=== PATIENT | male | born 1935 | race Caucasian/White ===

== ENCOUNTER 2018-07-22 09:36 | Day surgery (SDC) | payer OTHER ==
[~2018-07-22] VITALS: Ht 177.8 cm; Wt 110.9 kg
[~2018-07-22 09:36] MED LIST: ALLO100 PO; ALLO300 PO; AMOCLA875 PO; BP MED; CHOL10002 PO; CLOB.05TO TOP; GLUC500 PO; Glucosamine H1500 MG PO; HYDCHL12.5 PO; HYDCHL25 PO; LISI20 PO; LIVALO2 MG PO; Mobic15 MG PO; OXYACE7.5T PO; VITAMIN D-32000 UNIT PO; ZESTRIL40 MG PO
--- NOTE | 2018-07-22 11:09 | NUR ---
07/22/18 1108 Sabrina Franklin HOOKING UP ALTERNATIVE MONITER DUE TO EKG LEAD READING FAIL PRIOR TO SEDATION START
== END 2018-07-22 12:08 | disposition home or self-care (01) ==
LOC: ORSCSDS 09:36
PROVIDERS: Surgery
PROC: 0DJD8ZZ Inspection of Lower Intestinal Tract, Via Natural or Artificial Opening Endoscopic (ICD-10-PCS; principal; 2018-07-22 11:00)
DX: Z12.11 Encounter for screening for malignant neoplasm of colon (principal); Z86.010 Personal history of colon polyps; E78.00 Pure hypercholesterolemia, unspecified; I10 Essential (primary) hypertension; E78.5 Hyperlipidemia, unspecified; K21.9 Gastro-esophageal reflux disease without esophagitis; Z87.891 Personal history of nicotine dependence; Z79.899 Other long term (current) drug therapy
CPT/HCPCS: J2405; J7120

== ENCOUNTER → 2019-03-29 | Outpatient (CLI) | payer OTHER | END | disposition home or self-care (01) | LOC: LAB SHORT 10:28 → PLD 10:28 | DX: D48.5 Neoplasm of uncertain behavior of skin (principal) | CPT/HCPCS: 88305 ==

== ENCOUNTER 2019-04-07 15:56 | Emergency (ER) | payer OTHER ==
[~2019-04-07] VITALS: Ht 188 cm; Wt 113.4 kg
[2019-04-07 16:28] LABS: PCO2 Arterial 69.7 mmHg (35-45); PO2 Arterial 78.8 mmHg (80-100); pH Blood Arterial 6.91 (7.35-7.45)
[2019-04-07 16:43] LABS: BASOPHILS ABSOLUTE AUTO 0.04 K/mm3 (0.00-0.23); BASOPHILS PERCENT AUTO 1 % (0-2); EOSINOPHILS ABSOLUTE AUTO 0.09 K/mm3 (0.00-0.68); EOSINOPHILS PERCENT AUTO 1 % (0-6); Hematocrit 41.9 % (37.0-53.0); Hemoglobin 12.5 g/dL (13.5-17.5); IMMATURE GRAN ABSOLUTE AUTO 0.15 K/mm3 (0.00-0.10); IMMATURE GRAN PERCENT AUTO 2 % (0-1); LYMPHOCYTES PERCENT AUTO 42 % (21-46); MONOCYTES ABSOLUTE AUTO 0.37 K/mm3 (0.16-1.47); MONOCYTES PERCENT AUTO 5 % (4-13); Mean Corpuscular HGB 32.5 pg (26.0-34.0); Mean Corpuscular HGB Conc 29.8 g/dL (31.5-36.5); Mean Corpuscular Volume 109 fL (80-100); Mean Platelet Volume 11.1 fL (9.1-12.4); NEUTROPHILS ABSOLUTE AUTO 4.13 K/mm3 (1.96-9.15); NEUTROPHILS PERCENT AUTO 50 % (41-73); NRBC ABSOLUTE 0.02 K/mm3 (0.00-0.02); NRBC Auto 0.2 /100 WBC (0.0-0.2); Platelet Count 128 K/mm3 (150-400); RDW Coefficient Variation 13.3 % (11.7-14.2); RDW Standard Deviation 53.2 fL (35.1-46.3); Red Blood Cell Count 3.85 M/mm3 (4.30-5.90); White Blood Cell Count 8.28 K/mm3 (4.00-11.30)
--- NOTE | 2019-04-07 16:49 | NUR ---
Asked by ED staff to come to bedside of this dying pt. appeared frail and fragile. Son and grandchildren present. Prayer provided at TOD. Family appropriately tearful. selected [facility] for arrangements. Family left with pt's wallet and belt.
[2019-04-07 16:58] LABS: Albumin, Blood 3.2 g/dL (3.4-5.0); Albumin/Globulin Ratio 0.9 (0.8-1.8); Bilirubin, Total 0.3 mg/dL (0.1-1.0); Bun/Creatinine Ratio 19.4 (12.0-20.0); Calcium, Blood 8.6 mg/dL (8.5-10.1); Creatinine, Blood 1.44 mg/dL (0.60-1.20); Globulin, Blood 3.4 g/dL (2.2-4.0); International Normalized Ratio 0.97; Potassium, Blood 3.8 mmol/L (3.5-5.5); Prothrombin Time Results 10.3 Sec (9.7-11.5); Total Protein, Blood 6.6 g/dL (6.4-8.2)
[2019-04-07 17:34] LABS: Troponin I 0.525 ng/mL (0.000-0.040)
== END 2019-04-07 16:32 ==
LOC: ER 15:56
PROVIDERS: Emergency Medicine
DX: I46.9 Cardiac arrest, cause unspecified (principal); I10 Essential (primary) hypertension; E78.5 Hyperlipidemia, unspecified; Z87.891 Personal history of nicotine dependence; Z88.8 Allergy status to other drugs, medicaments and biological substances; Z79.899 Other long term (current) drug therapy
CPT/HCPCS: 31500; 36600; 51702; 71045; 80053; 82803; 84484; 85025; 85610; 85730; 92950; 93005; 93010; 94002; 96365-59; 96376-59; 99285-25; J0171; J1644; J7030; J7060